=== PATIENT | male | born 1975 | race Caucasian/White ===

== ENCOUNTER 2017-04-04 20:05 | Emergency (ER) | payer MEDICARE, MEDICAID ==
[2017-04-04] MEDS ORDERED: Albuterol/Ipratropium Neb 3 ML AERS HHN ONE ×2 (21:15→21:24)
--- NOTE | 2017-04-04 21:15 | ED Physician Chart ---
ED Chief Complaint/HPI - Patient Information Date Seen:: 04/04/17 Time Seen:: 21:11 Chief Complaint:: Cough History of Present Illness:: 41 yo male had cough productive of clear sputum for 1 day. No fever, no chills, no N/V. Patient stated that he ran out of medications for schizophrenia for 2 weeks. He noticed sneeze and drowsy. Allergies:: Allergies Allergy/AdvReac Type Severity Reaction Status Date / Time No Known Allergies Allergy Verified 04/04/17 20:10 Vitals:: Vital Signs - 8 hr 04/04/17 20:11 Temp 98.3 F HR 93 RR 17 BP 129/67 O2 Sat % 98 ED Review of Systems - Review of Systems General/Constitutional: No fever, No chills Skin: No bruising Head: No headache Eyes: No pain ENT: No nasal drainage Neck: No neck pain Cardio Vascular: No chest pain Pulmonary: Cough GI: No nausea, No vomiting Musculoskeletal: No bone or joint pain ED Past Medical History - Past Medical History Past Medical History: HTN Social History: Smoker, No Alcohol, No Drug Use Psychiatricy History: Schizophrenia Family Medical History - Family Member Mother Ethnicity: ED Physical Exam - Physical Examination General/Constitutional: Awake Head: Atraumatic Eyes: PERRL, EOMI Skin: No ecchymosis ENMT: Nasal exam nl Neck: No nuchal rigidity Other Respiratory comments:: mild fine crackles Cardio Vascular: RRR, No murmur, gallop, rubs GI: No tenderness/rebounding/guarding Extremities: normal strength in all extremities Neuro/Psych: No focal deficits ED Labs/Radiology/EKG Results - Radiology Results Results: CXR: no consolidation ED Assessment - Assessment General Assessment: Bronchitis Assessment/Comments:: CBC, CMP CXR DuoNeb Robitussin Zithromycin (Z-pack) D/c home F/u PCP or return to ER if symptoms worsen ED Septic Shock - . Is Septic Shock (SBP<90, OR Lactate>4 mmol\L) present?: No - <6hrs of presentation: Vital Signs: Vital Signs - 8 hr 04/04/17 20:11 Temp 98.3 F HR 93 RR 17 BP 129/67 O2 Sat % 98 ED Reassessment (Disposition) - Reassessment Reassessment Condition:: Improved - Patient Disposition Discharge/Transfer:: Home ED Discharge Plan - Patient Disposition Admit/Discharge/Transfer: PT DISCHARGED HOME Prescriptions: Azithromycin [Zithromax] 250 mg PO DAILY #6 tab Guaifenesin DM [Robitussin DM] 10 ml PO Q6H PRN #120 ml PRN Reason: Cough Or Congestion Instructions: Smoking, You Can Quit, [id number], Bronchitis, [id number] Additional Instructions: follow up with your primary medical doctor joseph take prescribed medications as ordered
[2017-04-04 21:58] LABS: WHITE BLOOD COUNT 4.5 Th/cmm (4.8-10.8)
[2017-04-04 21:59] LABS: HEMATOCRIT 40.3 % (41.0-60); HEMOGLOBIN 13.9 gm/dL (12-16); MEAN CELL VOLUME 85.3 fl (80-99); MEAN CORPUSCULAR HEMOGLOBIN 29.5 pg (26.0-30.0); RED BLOOD COUNT 4.73 Mil/cmm (4.30-5.70)
[2017-04-04 22:00] LABS: MEAN CORPUSCULAR HGB CONC 34.6 pg (28.0-36.0); PLATELET COUNT 198 Th/cmm (150-400)
[2017-04-04 22:01] LABS: % BASOPHILS 0.5 % (0.0-2.0); % EOSINOPHILS 9.1 % (0.0-5.0); % LYMPHOCYTES 30.9 % (20.0-50.0); % MONOCYTES 13.2 % (2.0-10.0); % NEUTROPHILS 46.3 % (40.0-80.0); EOSINOPHILE ABSOLUTE 0.4 Th/cmm (0.1-0.4); LYMPHOCYTE ABSOLUTE 1.4 Th/cmm (1.5-3.0); MONOCYTE ABSOLUTE 0.6 Th/cmm (0.3-1.0); NEUTROPHILE ABSOLUTE 2.1 Th/cmm (1.8-8.0)
[2017-04-04] MEDS ORDERED: Guaifenesin DM 10 ML UDC PO PRN (22:25)
[2017-04-04 22:32] LABS: ANION GAP 9.4 (7.0-16.0); CARBON DIOXIDE 28.1 mEq/L (21.0-31.0); CHLORIDE 106 mEq/L (98-107); POTASSIUM SERUM 3.5 mEq/L (3.5-5.1); SODIUM SERUM 140 mEq/L (136-145)
[2017-04-04 22:33] LABS: BUN - UREA NITROGEN 13 mg/dL (7-25); GLUCOSE 97 mg/dL (70-105)
[2017-04-04 22:35] LABS: CREATININE - SERUM 0.9 mg/dL (0.7-1.3); GFR AFRICAN-AMERICAN > 60.0 ml/min (>90); GFR NON AFRICAN-AMERICAN > 60.0 ml/min
[2017-04-04 22:36] LABS: ALB/GLOB RATIO 1.4 (1.0-1.8); ALKALINE PHOSPHATASE 76 U/L (34-104); BILIRUBIN,TOTAL 0.3 mg/dL (0.3-1.0); CALCIUM SERUM 9.1 mg/dL (8.6-10.3); SGOT 18 U/L (13-39); SGPT/ALT 17 U/L (7-52); TOTAL PROTEIN,SERUM 6.8 gm/dL (6.0-8.3)
--- NOTE | 2017-04-05 08:21 | Diagnostic Imaging Report ---
Portable chest x-ray History: Cough Allowing for portable technique the heart size is normal. No focal pulmonary parenchymal processes. No hilar or mediastinal abnormalities. Impression: No acute abnormalities.
== END 2017-04-04 22:25 | disposition home or self-care (01) ==
LOC: ER 20:05
DX: J40 Bronchitis, not specified as acute or chronic (principal); I10 Essential (primary) hypertension; F20.9 Schizophrenia, unspecified; F17.200 Nicotine dependence, unspecified, uncomplicated
CPT/HCPCS: 36415-UA; 71045-TC; 80053-TC; 85025-TC

== ENCOUNTER 2017-04-05 20:00 | Emergency (ER) | payer MEDICARE, MEDICAID ==
--- NOTE | 2017-04-05 20:52 | ED Physician Chart ---
ED Chief Complaint/HPI - Patient Information Date Seen:: 04/05/17 Time Seen:: 20:30 Chief Complaint:: URI symptoms History of Present Illness:: location: general quality: congestion, cough severity: mild duration: one week context: one week ago pt with onset of URI symptoms. some fever, nasal congestion, no sore throat, no ear pain. dry cough. comes to ER today saying that he had a mild fever this morning, did not take his temperature. also has mild dry cough. non productive. pt is a current every day smoker. no vomiting, no diarrhea. no pain complaint. mod factors: none assoc s/s; none hx from pt. Allergies:: Allergies Allergy/AdvReac Type Severity Reaction Status Date / Time No Known Allergies Allergy Verified 04/05/17 20:11 Vitals:: Vital Signs - 8 hr 04/05/17 20:05 Temp 100.5 F HR 98 RR 20 BP 150/88 O2 Sat % 98 Historian:: Patient Review:: Nurse's Note Reviewed ED Review of Systems - Review of Systems General/Constitutional: Fever, Chills, No weight loss, No weakness, No diaphoresis, No edema, No loss of appetite Skin: No skin lesions, No rash, No bruising Head: No headache, No light-headedness Eyes: No loss of vision, No pain, No diplopia ENT: Nasal drainage, No sore throat, No tinnitus Neck: No neck pain, No swelling, No thyromegaly, No stiffness, No mass noted Cardio Vascular: No chest pain, No palpitations, No PND, No orthopnea, No edema Pulmonary: Cough, No sputum, No wheezing GI: No nausea, No vomiting, No diarrhea, No pain, No melena, No hematochezia, No constipation, No hematemesis G/U: Dysuria Musculoskeletal: No bone or joint pain, No back pain, No muscle pain Endocrine: No polyuria, No polydipsia Psychiatric: No prior psych history, No depression, No anxiety, No suicidal ideation Hematopoietic: No bruising, No lymphadenopathy Allergic/Immuno: No urticaria, No angioedema Neurological: No syncope, No focal symptoms, No weakness, No paresthesia, No headache, No seizure, No dizziness, No confusion, No vertigo ED Past Medical History - Past Medical History Past Medical History: Other Family History: None Social History: Smoker, No Alcohol, No Drug Use, Single Surgical History: None Psychiatricy History: Schizophrenia, Other Medication: Reviewed Family Medical History - Family Member Mother Ethnicity: Living Status: Still Living Hx Family Hypertension: Yes Hx Family Diabetes: Yes ED Physical Exam - Physical Examination General/Constitutional: Awake, Well-developed, well-nourished, Alert, No distress, GCS 15, Non-toxic appearing, Ambulatory Head: Atraumatic Eyes: Lids, conjuctiva normal, PERRL, EOMI Skin: Nl inspection, No rash, No skin lesions, No ecchymosis, Well hydrated, No lymphadenopathy ENMT: External ears, nose nl, Nasal exam nl, Lips, teeth, gums nl Neck: Nontender, Full ROM w/o pain, No JVD, No nuchal rigidity, No bruit, No mass, No stridor Respiratory: Nl effort/Exclusion Cardio Vascular: RRR, No murmur, gallop, rubs, NL S1 S2 GI: No tenderness/rebounding/guarding : No CVA tenderness Extremities: No tenderness or effusion, Full ROM, normal strength in all extremities, No edema, Normal digits & nails Neuro/Psych: Alert/oriented Misc: Normal back, No paraspinal tenderness ED Assessment - Assessment General Assessment: pt in stable condition while in ER. pt says he was seen in ER yesterday and given an antibiotic script which he took to the local [facility] pharmacy. he didnt sisal picker the script yet. decided to come to the ER tonight for a recheck. no new complaints as compared to yesterday's visit. ED Septic Shock - . Is Septic Shock (SBP<90, OR Lactate>4 mmol\L) present?: No - <6hrs of presentation: Vital Signs: Vital Signs - 8 hr 04/05/17 20:05 Temp 100.5 F HR 98 RR 20 BP 150/88 O2 Sat % 98 ED Reassessment (Disposition) - Reassessment Reassessment:: pt in stable condition while in ER. no wheezes, occasional nonproductive cough Reassessment Condition:: Unchanged - Diagnosis Diagnosis:: upper respiratory infection, cough, bronchitis in current daily smoker - Aftercare/Follow up Instructions Aftercare/Follow-Up Instructions:: Refer to Discharge Instructions Medication Prescribed:: no script. pt was given zithromax script about 24 hours ago and says script is waiting for him at local pharmacy - Patient Disposition Discharge/Transfer:: Home Condition at Disposition:: Stable
== END 2017-04-05 21:00 | disposition home or self-care (01) ==
LOC: ER 20:00
DX: J06.9 Acute upper respiratory infection, unspecified (principal); J40 Bronchitis, not specified as acute or chronic; F17.200 Nicotine dependence, unspecified, uncomplicated
CPT/HCPCS: Z7502